=== PATIENT | female | born 2000 | race Caucasian/White ===

== ENCOUNTER 2024-05-01 15:52 | Emergency (ER) | payer OTHER, SELFPAY ==
[2024-05-01 15:54] VITALS: BP 142/94
--- NOTE | 2024-05-01 16:16 | EDRN ---
Crisis in room w/ pt at this time.
--- NOTE | 2024-05-01 16:19 | ED.GENMED ---
History of Present Illness
General
Chief Complaint: Crisis Evaluation
Source: patient
Exam Limitations: none
Time Seen by Provider: 05/01/24 16:03
History of Present Illness
History of Present Illness:
24yoF with a history of ITP, anxiety, and depression presenting for a psychiatric evaluation. Patient's boyfriend of 5 years unexpectedly broke up with her 4 days ago. Since then, she has been having increasing depression, decreased appetite,
nausea, trouble sleeping, and feeling like her heart is racing. She is unsure if she is having a heart attack. She states she just wants her boyfriend back. She is having intermittent thoughts of hurting herself. She is currently in her last
semester of college. 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 She was recently started on Wellbutrin last week by her PCP. She also takes Prozac. She sees her therapist weekly. No prior history of
inpatient psychiatric treatment.
Past History
Past History
ED Past Medical History: Other (ITP)
ED Past Surgical History: None
Social History
Tobacco: Non-smoker
Alcohol: None
Drug: None
Personal: Single
Living: with family
Employment: Employed
Phy Exam
General Physical Exam
General Presentation: well appearing
General Skin: warm and dry
General Habitus: normal
General Mental: alert and anxious
ENT Exam
ENT Exam: normocephalic
Cardiovascular Exam
Cardiovascular Exam: regular rate/rhythm and no murmur
Pulmonary Exam
Pulmonary Exam: lungs clear, no respiratory distress, no rales, no crackles and no rhonchi
Neurological Exam
Neurological Exam: alert
[place] Coma Scale
Eye Opening: Spontaneous
Verbal Response: Oriented
Motor Response: Obeys Commands
GCS Total Score: 15
Skin Exam
Skin Exam: normal color and warm/dry
Psychiatric Exam
Psychiatric Exam: anxious and other (Tearful, anxious. Forthcoming with details. Reports intermittent SI.)
Course
Orders/Labs/Results
Orders:
Orders
05/01/24 15:59
1:1 Observation - Suicide/ Violent Behavior As Directed
Crisis Consult Urgent
Reason for Consult: panic attack, SI
05/01/24 16:00
Electrocardiogram (*1) Urgent
Reason for Study: Palpitations
EKG- Treatment ONCE
05/01/24 16:18
Test Result ONCE
05/01/24 16:30
Complete Blood Count/With Diff Urgent
Comprehensive Metabolic Panel Urgent
HCG, Serum Qualitative Screen Urgent
Magnesium Urgent
TSH Reflex To Free T4 Urgent
Troponin I Urgent
Abnormal Lab Results
05/01/24
16:30
Absolute Neuts (auto) 8.0 H 10^3/uL
(1.4-6.5)
Neutrophils % 76.6 H %
(42.2-75.2)
Lymphocytes % 17.0 L %
(20.5-51.1)
05/01/24 16:30
05/01/24 16:30
Vital Signs
Initial and Last Documented VS:
Initial Vital Signs
Temp Pulse Resp BP Pulse Ox
98.9 F 116 16 142/94 98
05/01/24 15:54 05/01/24 15:54 05/01/24 15:54 05/01/24 15:54 05/01/24 15:54
Last Documented Vital Signs
Temp Pulse Resp BP Pulse Ox
98.9 F 100 18 135/95 97
05/01/24 15:54 05/01/24 17:15 05/01/24 17:15 05/01/24 17:15 05/01/24 17:15
MDM/Problems Addressed
Differential Diagnosis Includes:
24yoF here for a psychiatric evaluation. Boyfriend broke up with her a few days ago and she's not doing well. C/o trouble sleeping, anxiety, heart racing. HR 116 in triage. She is tearful during exam and reports intermittent SI without plan.
Differential diagnosis includes but is not limited to: situational stress, depression, anxiety, arrhythmia, thyroid dysfunction
Initial ED plan: Check cardiac labs, magnesium, TSH, and EKG. Will consult crisis.
*EKG
Interpreted by ED Provider?: Yes
EKG Intrepretation Date: 05/01/24
Heart Rate: 77
Rate: normal
Rhythm: sinus
[place]: normal axis
Interval: normal interval
QRS Pattern: normal QRS
Ischemia: no ischemia
*Critical Care Note
Total Time (30-74mins, 75-104mins- exclusive of procedures): Not Applicable
Update Note
Update Note:
Labs unremarkable including normal electrolytes and TSH. EKG shows normal sinus rhythm without ectopy or ischemic changes. Troponin within normal limits. Patient evaluated by crisis. Plan for outpatient follow-up with [facility]. Mother
requesting medication to help her sleep. Will trial hydroxyzine. Patient advised to follow-up with her PCP, therapist, in the outpatient resources provided. ED return precautions discussed. Patient in agreement with plan and was discharged in
stable condition.
ED Attending Note
-
Portions of this chart may have been created with voice recognition software.� Occasional wrong word or��sound alike� substitutions may have occurred due to the inherent limitations of voice recognition software.
Discharge Plan
Departure
Patient Disposition: Home (Routine Discharge)
Date of Disposition: 05/01/24
Time of Disposition: 17:50
Patient with high blood pressure during this ER visit?: Yes
Discharge Problem:
Encounter for psychiatric assessment, Situational stress
Instructions: Anxiety, Adult (DC)
Prescriptions:
New
hydroxyzine HCl 25 mg tablet
25 mg PO QID PRN (Reason: anxiety) Qty: 20 0RF
No Action
cephalexin 500 mg capsule
500 mg PO Q8H Qty: 21 0RF
Referrals:
Aida Vasquez PA [Family Provider] -
Activity Restrictions/Additional Instructions:
Take hydroxyzine as needed for anxiety.
Please follow-up with your family doctor and the outpatient mental health resources provided. Return to the ER with any worsening symptoms or suicidal thoughts.
Interventions
Interventions:
*Risk Screen - Suicide Last Done: 05/01/24 16:34
*General Assessment Last Done: 05/01/24 16:34
*Neglect/Abuse Screening Last Done: 05/01/24 16:34
ED- Fall Risk Assessment Last Done: 05/01/24 16:34
*ED COVID-19 Vaccine History Last Done: 05/01/24 16:34
ED-Psychological Assessment Last Done: 05/01/24 16:34
Discharge Date and Time
Discharge Date/Time: 05/01/24 18:30
Print Language: TAJIK
[2024-05-01 16:34] VITALS: BMI 29.3
--- NOTE | 2024-05-01 16:35 | EDRN ---
Pt states that she is feeling suicidal and states her sadness is related to her boyfriend from her due to mental health issues. She says he told her that he cannot handle his mental health issues w/ a relationship.
[2024-05-01 16:40] LABS: % Basophils 0.7 % (0-2); % Eosinophils 0.2 % (0-6); % Immature Granulocytes 0.4 % (0-0.5); % Monocytes 5.1 % (1.7-9.3); % Neutrophils 76.6 % (42.2-75.2); Absolute Basophils 0.1 10^3/uL (0-0.2); Absolute Lymphocytes 1.8 10^3/uL (1.2-3.4); Absolute Monocytes 0.5 10^3/uL (0.1-0.6); Hematocrit 41.7 % (37.0-47.0); Hemoglobin 14.9 g/dL (12.0-16.0); Mean Corp Hgb Conc. 35.7 g/dL (33.0-37.0); Mean Corpuscular Hgb 29.4 pg (27.0-31.0); Mean Corpuscular Volume 82.2 fL (81.0-99.0); Mean Platelet Volume 9.3 fL (7.4-10.4); Nucleated Red Blood Cells % 0 %; Platelet Count 275 10^3/uL (130-400); Red Blood Cell Count 5.07 10^6/uL (4.20-5.40); Red Cell Dist. Width 12.2 % (11.5-14.5); White Blood Cell Count 10.5 10^3/uL (4.8-10.8)
[2024-05-01 16:53] LABS: HCG, Serum Qualitative Screen Negative
[2024-05-01 16:57] LABS: ALT (SGPT) 19 U/L (0-35); AST (SGOT) 23 U/L (14-36); Albumin 4.6 g/dl (3.5-5.0); Alkaline Phosphatase 90 U/L (38-126); Blood Urea Nitrogen 14 mg/dl (7-17); Calcium 9.8 mg/dl (8.4-10.2); Carbon Dioxide 24 mmol/L (22-30); Chloride 103 mmol/L (98-107); Estimated Creatinine Clearance 92 ml/min; Glucose 81 mg/dl (70-99); Potassium 4.1 mmol/L (3.5-5.1); Sodium 138 mmol/L (135-145); Total Bilirubin 1.1 mg/dl (0.2-1.3); Total Protein 8.1 g/dl (6.3-8.2); eGFR > 60.00
[2024-05-01 17:02] LABS: Troponin I < 0.012 ng/ml
--- NOTE | 2024-05-01 17:09 | EDRN ---
Pt awaiting outpatient psychiatric placement at this time. Pt does not need a urine spec.
[2024-05-01 17:15] VITALS: BP 135/95
[2024-05-01 17:28] LABS: TSH Reflex To Free T4 2.15 uIU/ml (0.47-4.68)
== END 2024-05-01 18:30 | disposition home or self-care (01) ==
LOC: EMR 15:52
PROVIDERS: Physician Assistant; EMERGENCY PHYSICIAN Emergency Medicine; FAMILY PHYSICIAN Physician Assistant Medical
DX: Z13.30 Encounter for screening examination for mental health and behavioral disorders, unspecified (principal); F43.9 Reaction to severe stress, unspecified; D69.3 Immune thrombocytopenic purpura; F41.0 Panic disorder [episodic paroxysmal anxiety]; F41.8 Other specified anxiety disorders
CPT/HCPCS: 99283; 80053; 83735; 84443; 84484; 84703; 85025; 93005